=== PATIENT | female | born 1955 | race Caucasian/White ===

== ENCOUNTER 2025-01-23 14:37 | Emergency (ER) | payer MEDICARE ==
[2025-01-23 14:45] VITALS: TEMP 97.6
--- NOTE | 2025-01-23 16:05 | ED ---
Extremity Problem HPI - General Chief complaint: Extremity Problem,Nontraumatic Stated complaint: L Swollen Foot Time Seen by Provider: 01/23/25 15:40 Source: patient, family, RN notes reviewed, old records reviewed Mode of arrival: ambulatory Limitations: no limitations - History of Present Illness Initial comments: This is a 69 female to the ER sent in by her foot and ankle specialist for evaluation of left lower extremity swelling significant lower extremity swelling with history of PE not currently on blood thinners recently returned from a long [place] trip in a long car ride home foot swelling is increased pain is increased MD Complaint: extremity pain, extremity swelling, other (Lower extremity pain swelling swelling into the foot) -: days(s) Location: left, lower extremity -: Yes myalgia Radiation: none Severity scale (1-10): 7 Consistency: constant Improves with: nothing Worsens with: nothing Associated Symptoms: denies other symptoms - Related Data Home Medications Medication Instructions Recorded Confirmed Dandelion Root (Unknown Dose) 1 tab PO DAILY 01/23/25 01/23/25 Potassium Chloride ER [K-Dur 10] 10 meq PO BID 01/23/25 01/23/25 oxyCODONE HCL [oxyCODONE HCL (IR)] 10 mg PO Q4H PRN 01/23/25 01/23/25 predniSONE 20 mg PO DIRECTED 01/23/25 01/23/25 Previous Rx's Medication Instructions Recorded Apixaban [Eliquis Starter Pack 5 - 10 mg PO DIRECTED 30 Days 01/23/25 (for VTE)] #1 each Apixaban [Eliquis Starter Pack 5 - 10 mg PO DIRECTED 30 Days 01/23/25 (for VTE)] #1 each Apixaban [Eliquis] 5 mg PO BID #60 tab 01/23/25 Apixaban [Eliquis] 5 mg PO BID #60 tab 01/23/25 Allergies Allergy/AdvReac Type Severity Reaction Status Date / Time iodine Allergy Rash/Hives Verified 01/23/25 16:25 Sulfa (Sulfonamide Allergy Rash/Hives Verified 01/23/25 16:25 Antibiotics) Review of Systems ROS Statement: Those systems with pertinent positive or pertinent negative responses have been documented in the HPI. ROS Other: All systems not noted in ROS Statement are negative. Past Medical History Additional Past Medical History / Comment(s): chrohns Past Surgical History: Orthopedic Surgery Smoking Status: Former smoker General Exam Limitations: no limitations General appearance: alert, in no apparent distress Head exam: Present: atraumatic, normocephalic, normal inspection Eye exam: Present: normal appearance, PERRL, EOMI. Absent: scleral icterus, conjunctival injection, periorbital swelling ENT exam: Present: normal exam, mucous membranes moist Neck exam: Present: normal inspection. Absent: tenderness, meningismus, lymphadenopathy Respiratory exam: Present: normal lung sounds bilaterally. Absent: respiratory distress, wheezes, rales, rhonchi, stridor Cardiovascular Exam: Present: regular rate, normal rhythm, normal heart sounds. Absent: systolic murmur, diastolic murmur, rubs, gallop, clicks GI/Abdominal exam: Present: soft, normal bowel sounds. Absent: distended, tenderness, guarding, rebound, rigid Extremities exam: Present: normal inspection, full ROM, normal capillary refill. Absent: tenderness, pedal edema, joint swelling, calf tenderness Back exam: Present: normal inspection Neurological exam: Present: alert, oriented X3, CN II-XII intact Psychiatric exam: Present: normal affect, normal mood Skin exam: Present: warm, dry, intact, normal color. Absent: rash Course Vital Signs 01/23/25 14:41 Temperature 97.6 F Pulse Rate 86 Respiratory 16 Rate Blood Pressure 187/96 O2 Sat by Pulse 98 Oximetry - Reevaluation(s) Reevaluation #1: 01/23/25 16:22 Medical records reviewed Reevaluation #2: 01/23/25 17:37 Reevaluation of this patient is without chest pain or shortness of breath Reevaluation #3: 01/23/25 17:38 Patient is in no acute distress patient informed of results and questions answered Reevaluation #4: Was pt. sent in by a medical professional or institution (, PA, FEEDER OPERATOR, urgent care, hospital, or senior living...) When possible be specific @ -no Did you speak to anyone other than the patient for history (EMS, parent, family, police, friend...)? What history was obtained from this source @ -no Did you review nursing and triage notes (agree or disagree)? Why? @ -agree Are old charts reviewed (outside hosp., previous admission, EMS record, old EKG, old radiological studies, urgent care reports/EKG's, senior living records)? Report findings @ -yes Differential Diagnosis (chest pain, altered mental status, abdominal pain women, abdominal pain men, vaginal bleeding, weakness, fever, dyspnea, syncope, headache, dizziness, GI bleed, back pain, seizure, CVA, palpatations, mental health, musculoskeletal)? @ -prior EKG interpreted by me (3pts min.). @ -yes X-rays interpreted by me (1pt min.). @ -yes negative for acute disease CT interpreted by me (1pt min.). @ -no U/S interpreted by me (1pt. min.). @ -no What testing was considered but not performed or refused? (CT, X-rays, U/S, labs)? Why? @ -none What meds were considered but not given or refused? Why? @ -none Did you discuss the management of the patient with other professionals (professionals i.e. , PA, FEEDER OPERATOR, lab, RT, psych nurse, social media marketer, j2ee architect, teacher, naval gunfire liaison officer, disability case manager)? Give summary @ -no Was smoking cessation discussed for >3mins.? @ -no Was critical care preformed (if so, how long)? @ -no Were there social determinants of health that impacted care today? How? (Homelessness, low income, unemployed, alcoholism, drug addiction, transportation, low edu. Level, literacy, decrease access to med. care, usp, rehab)? @ -none Was there de-escalation of care discussed even if they declined (Discuss DNR or withdrawal of care, Hospice)? DNR status @ -no What co-morbidities impacted this encounter? (DM, HTN, Smoking, COPD, CAD, Cancer, CVA, ARF, Chemo, Hep., AIDS, mental health diagnosis, sleep apnea, morbid obesity)? @ -none Was patient admitted / discharged? Hospital course, mention meds given and route, prescriptions, significant lab abnormalities, going to OR and other pertinent info. @ - Undiagnosed new problem with uncertain prognosis? @ -no Drug Therapy requiring intensive monitoring for toxicity (Heparin, Nitro, Insulin, Cardizem)? @ -no Were any procedures done? @ -no Diagnosis/symptom? @ - Acute, or Chronic, or Acute on Chronic? @ -Acute Uncomplicated (without systemic symptoms) or Complicated (systemic symptoms)? @ -Complicated Side effects of treatment? @ -no Exacerbation, Progression, or Severe Exacerbation? @ -exacerbation Poses a threat to life or bodily function? How? (Chest pain, [place], [place], pneumonia, PE, COPD, DKA, ARF, appy, cholecystitis, CVA, Diverticulitis, Homicidal, Suicidal, threat to staff... and all critical care pts) @ -yes Medical Decision Making - Medical Decision Making 69 Female to ER for evaluation of left lower extremity swelling positive left lower extremity DVT. Patient placed on Eliquis given Lovenox shot and can be discharged home - Radiology Data Radiology results: report reviewed (Ultrasound left lower extremity positive DVT), image reviewed Disposition Clinical Impression: Deep vein thrombosis (DVT) of lower extremity, Left leg DVT Disposition: HOME SELF-CARE Condition: Good Instructions (If sedation given, give patient instructions): Deep Vein Thrombosis (ED) Prescriptions: Apixaban [Eliquis] 5 mg PO BID #60 tab Apixaban [Eliquis] 5 mg PO BID #60 tab Apixaban [Eliquis Starter Pack (for VTE)] 5 - 10 mg PO DIRECTED 30 Days #1 each Apixaban [Eliquis Starter Pack (for VTE)] 5 - 10 mg PO DIRECTED 30 Days #1 each Is patient prescribed a controlled substance at d/c from ED?: No Referrals: Nonstaff,Physician [Primary Care Provider] - 1-2 days Time of Disposition: 17:00
--- NOTE | 2025-01-23 16:20 | US ---
EXAMINATION TYPE: US venous doppler duplex LE LT DATE OF EXAM: 01/23/2025 4:13 PM COMPARISON: NONE CLINICAL INDICATION: Female, 69 years old with history of pain; Left leg edema/pain, Pain TECHNIQUE: The lower extremity deep venous system is examined utilizing real time linear array sonog pablito with graded compression, color doppler sonography, and spectral doppler. SIDE PERFORMED: left FINDINGS: VESSELS IMAGED: Common Femoral Vein Deep Femoral Vein Greater Saphenous Vein * Femoral Vein Popliteal Vein Small Saphenous Vein * Proximal Calf Veins (* superficial vessels) Left Leg: +Positive for DVT left popliteal vein. patient unable to tolerate compression lower femora l vein, Color Doppler imaging shows patency of the vessels. Spectral waveforms are within normal limi ts. IMPRESSION: Acute DVT in the left lower extremity is present in the popliteal vein and present above the knee joint . [facility], , 01/23/2025 4:18 PM
[2025-01-23] MEDS: APIXABAN 5 MG TAB PO STA (17:29)
[2025-01-23] MEDS: ENOXAPARIN 120 MG/0.8 ML SYRINGE SQ STA (17:30)
[2025-01-23 17:46] VITALS: BP 137/85; PULSE 76; RESP 18
== END 2025-01-23 17:46 | disposition home or self-care (01) ==
LOC: EC 14:37
DX: I82.432 Acute embolism and thrombosis of left popliteal vein (principal); Z88.8 Allergy status to other drugs, medicaments and biological substances; Z88.2 Allergy status to sulfonamides; Z87.891 Personal history of nicotine dependence
CPT/HCPCS: 93971; 99283; 96372; J1650